=== PATIENT | female | born 1980 ===

== ENCOUNTER 2024-08-26 07:11 | Inpatient (IN) | payer OTHER ==
[~2024-08-26] VITALS: Ht 160 cm; Wt 100.0 kg
[2024-08-26] MEDS: ONDANSETRON HCL 4 MG/2 ML VIAL IVP ONE (07:50)
[2024-08-26] MEDS: KETOROLAC TROMETHAMINE 30 MG/ML VIAL IVP ONE (07:51)
[2024-08-26 07:57] LABS: BASOPHILS % (AUTO) 0.3 % (0.0-2.0); EOSINOPHILS % (AUTO) 0.4 % (1.0-6.0); HEMATOCRIT 40.3 % (36-46); HEMOGLOBIN 13.5 g/dL (12.0-16.0); LYMPHOCYTES # (AUTO) 2.3 K/uL (1.0-4.8); LYMPHOCYTES % (AUTO) 16.7 % (22.0-44.0); MEAN CORPUSCULAR HEMOGLOBIN 29.1 pg (26.0-34.0); MEAN CORPUSCULAR HGB CONC 33.6 G/dL (31.0-37.0); MEAN CORPUSCULAR VOLUME 87 fL (80-100); MONOCYTES # (AUTO) 0.7 K/uL (0.1-1.0); MONOCYTES % (AUTO) 5.2 % (2.0-9.0); NEUTROPHILS # (AUTO) 10.4 K/uL (1.8-7.7); NEUTROPHILS % (AUTO) 77.4 % (40.0-70.0); PLATELET COUNT (AUTO) 411 K/uL (150-450); RED BLOOD CELL COUNT(AUTO) 4.65 MIL/uL (4.00-5.20); RED CELL DISTRIBUTION WIDTH 13.5 % (11.5-14.5); WHITE BLOOD COUNT (AUTO) 13.5 K/uL (4.5-11.0)
[2024-08-26 08:02] LABS: ANION GAP 12 mmol/L (8-16); CARBON DIOXIDE 20 mmol/L (22-29); CHLORIDE 100 mmol/L (98-107); CREATININE 0.98 mg/dL (0.60-1.30); GLOMERULAR FILTR. RATE CALC > 60 mL/min (>60); GLUCOSE,RANDOM 282 mg/dL (70-110); SODIUM SERUM 132 mmol/L (136-145); UREA NITROGEN, BLOOD 18 mg/dL (7-18)
[2024-08-26] MEDS: SODIUM CHLORIDE 0.9% 1,000 ML IV ONE ×2 (08:44→12:48)
[2024-08-26 09:26] LABS: APPEARANCE,URINE CLEAR (CLEAR); BILIRUBIN,URINE NEGATIVE (NEGATIVE); COLOR,URINE LIGHT YELLOW (YELLOW); GLUCOSE, URINE (UA) >=1000 mg/dL (NEGATIVE); KETONES,URINE TRACE mg/dL (NEGATIVE); LEUKOCYTE ESTERASE ,URINE MODERATE (NEGATIVE); NITRATE,URINE POSITIVE (NEGATIVE); OCCULT BLOOD,URINE MODERATE (NEGATIVE); PROTEIN,URINE 30-70 mg/dL (NEGATIVE); SPECIFIC GRAVITIY, URINE 1.026 (1.003-1.030); UROBILINOGEN,URINE <=1.0 mg/dL (<=1.0)
[2024-08-26 09:47] LABS: BACTERIA,URINE Moderate /HPF (None Seen); WBC,URINE 26-50 /HPF (0-5)
[2024-08-26 09:48] LABS: SQUAMOUS EPITHELIAL CELL,UR Few /LPF (None Seen)
[2024-08-26] MEDS ORDERED: ATOR10TA69 PO (11:19)
[2024-08-26] MEDS ORDERED: LOSA-382 PO (11:19)
[2024-08-26] MEDS ORDERED: LINA5TAB PO (11:19)
[2024-08-26] MEDS ORDERED: METF-446 PO (11:19)
[2024-08-26] MEDS: CefTRIAXone 1 GM/DEXTROSE 50 ML IV ONE (11:57)
[2024-08-26 12:37] LABS: LACTIC ACID 2.5 mmol/L (0.4-2.0)
[2024-08-26] MEDS: PIPERACILLIN/TAZO 3.375 GM/D5W 50 ML IV ONE (12:48)
[2024-08-26 17:01] VITALS: BP 138/91; PULSE 126; RESP 18; TEMP 98.8; O2SAT 97
[2024-08-26] MEDS ORDERED: AMOX-457 PO (18:14)
[2024-08-26] MEDS ORDERED: TRAM50TA5 PO (18:14)
== END 2024-08-26 18:40 | disposition left against medical advice (07) | DRG 872 ==
LOC: EMS 07:20 → EDH 14:33 → 5S 16:41
PROVIDERS: ADMIT Hospitalist; ATTEND Hospitalist
DX: A41.9 Sepsis, unspecified organism (principal); N13.6 Pyonephrosis; E11.9 Type 2 diabetes mellitus without complications; E66.9 Obesity, unspecified; E78.5 Hyperlipidemia, unspecified; I10 Essential (primary) hypertension; K80.20 Calculus of gallbladder without cholecystitis without obstruction; K76.0 Fatty (change of) liver, not elsewhere classified; Z53.29 Procedure and treatment not carried out because of patient's decision for other reasons; I16.0 Hypertensive urgency; Z79.82 Long term (current) use of aspirin; Z79.899 Other long term (current) drug therapy; Z87.442 Personal history of urinary calculi; Z68.39 Body mass index [BMI] 39.0-39.9, adult
CPT/HCPCS: 74176; 80048; 81001; 83605; 84702; 85025; 87040; 87077; 87086; 87186; 96361; 96365; 96367; 96375; 99291; J0696; J1885; J2405; J2543; 36415-L1; 36415-TC